=== PATIENT | male | born 1995 | race Caucasian/White ===

== ENCOUNTER 2024-04-26 12:36 | Emergency (ER) | payer OTHER, SELFPAY ==
--- NOTE | ~2024-04-26 | CT_ITS ---
CT brain wo con Ordering provider: Leonidas Bowman MD History: 29 years Male with . concussion . Comparison: None. Technique: CT of the head without contrast. Radiation reduction technique utilized. The dose-length product was 605.33 mGy-cm. FINDINGS: BRAIN PARENCHYMA AND CSF SPACES: No midline shift, mass effect or hemorrhage. The brain parenchyma a nd CSF spaces are otherwise normal. VISUALIZED PARANASAL SINUSES: Well aerated. MASTOIDS: Well aerated. BONES: The bones appear intact. SOFT TISSUES: Visualized nasopharynx is normal. Superficial soft tissues are normal. IMPRESSION: No acute intracranial findings. Reviewed, dictated and finalized at location A. [employer]
[2024-04-26 13:06] VITALS: BP 133/90; PULSE 87; RESP 14; TEMP 36.3; O2SAT 100
--- NOTE | 2024-04-26 15:37 | ED_ITS ---
HPI - Head Injury General Chief complaint: Head Injury Stated complaint: HEAD INJURY AT WORK Time Seen by Provider: 04/26/24 15:16 History of Present Illness HPI Narrative: 29-year-old male with otherwise no past medical history, presents to the emergency department from his place of work for head injury. Patient had a metal rack fall and hit his head on the right parietal area. Did not lose consciousness but has been persistently having difficulty focusing, persistent headache, nauseousness without vomiting. He is not any kind anticoagulation or blood thinner medications. Was otherwise in his normal state of health. Injury happened about 3 hours prior to arrival. Patient states he has no history of concussions or any other injuries. No history of head or neck surgeries. No other symptoms at this time such as chest pain, shortness a breath, back pain, weakness, neuropathy, sensory loss. Related Data Allergies Allergy/AdvReac Type Severity Reaction Status Date / Time No Known Allergies Allergy Verified 04/26/24 13:08 Review of Systems Review of Systems: As reviewed above in HPI Exam Narrative: GENERAL: [Well-appearing, well-nourished, and in no acute distress.] HEAD: [Normocephalic, atraumatic.] EYES: [PERRLA and EOMI.] ENT: Nares clear, no rhinorrhea or epistaxis. Mucous membranes moist. NECK: Supple. CHEST: [Clear to auscultation. No respiratory distress.] HEART: [Regular rate and rhythm]. No murmur heard. [Normal peripheral pulses.] ABDOMEN: [Soft, nondistended], [nontender], [No rigidity or guarding] EXTREMITIES: Normal range of motion. [No edema.] SKIN: Warm, dry, no rash. NEURO: [No focal deficits]. Alert and oriented [x3.] PSYCH: [Normal mood and affect.] Course Vital Signs Vital signs: Vital Signs Temperature 36.3 C L 04/26/24 13:06 Pulse Rate 87 04/26/24 13:06 Respiratory Rate 14 04/26/24 13:06 Blood Pressure 133/90 04/26/24 13:06 Pulse Oximetry 100 04/26/24 13:06 Oxygen Delivery Room Air 04/26/24 13:06 Temperature 36.3 C L 04/26/24 13:06 Pulse Rate 87 04/26/24 13:06 Respiratory Rate 14 04/26/24 13:06 Blood Pressure 133/90 04/26/24 13:06 Pulse Oximetry 100 04/26/24 13:06 Oxygen Delivery Room Air 04/26/24 13:06 MDM - Head Injury MDM Narrative Medical decision making narrative: 29-year-old male with otherwise no past medical history presenting after a closed head injury at work. He had a metal bar/rack hit his head on the right side in the parietal area. Did not lose consciousness and did not fall to the ground. Patient has been having persistent difficulty focusing and a persistent headache since this happened. Has not taken any medication for pain prior to arrival. Has a normal neurological assessment without any focal deficits. He states he feels nauseous but has not vomited. Does not take any anticoagulation measures. Otherwise normal vital signs and unremarkable neurological assessment. Patient is concerned and given his persistent concussion type symptoms a noncontrast CT was ordered although suspicion for intracranial pathology such as a hemorrhage or bleed is low. He was given Toradol and Tylenol for symptom control and re-evaluated. CT scan shows no acute intracranial pathology. Patient is safe and stable for discharge home at this time and given concussion instructions and return precautions as well as instructions on return to work and return to physical activity. Patient verbalized understanding was safe for discharge at this time. Medical Records Attestation: I reviewed the patient's medical records. Imaging Data Attestation: I personally reviewed and interpreted this imaging study as follows: My impression: Impressions Head CT 04/26/24 16:01 IMPRESSION: No acute intracranial findings. Discharge Plan Discharge Clinical Impression: Closed head injury, Concussion without loss of consciousness, Postconcussion syndrome Patient Disposition: Home, Self-Care Condition: Stable Instructions: Antibiotic Form, Concussion (ED), Head Injury (ED), Post Concussion Syndrome (ED) Additional Instructions: You have a concussion but no signs of any intracranial or skull injury. He can take Tylenol and ibuprofen for symptoms. Symptoms may last for several weeks. Refrain from exerting yourself mentally and physically until fully recovered. Follow-up with regular doctor. Can return to fully functional activities as tolerated. Patient Language: [place] Follow-up/Referrals: PHYSICIAN NOT ON STAFF,NONSTAFF [Primary Care Provider] - Time of Disposition: 16:50
[2024-04-26] MEDS: ACETAMINOPHEN 500 MG TABLET 1000 MG PO (16:01)
== END 2024-04-26 17:10 | disposition home or self-care (01) ==
PROVIDERS: Emergency Provider Student in an Organized Health Care Education/Training Program
DX: S06.0X0A Concussion without loss of consciousness, initial encounter (principal); W20.8XXA Other cause of strike by thrown, projected or falling object, initial encounter
CPT/HCPCS: 70450; 99283; A9270